=== PATIENT | female | born 1960 | race Caucasian/White ===

== ENCOUNTER 2016-09-12 11:21 | Emergency (ER) | payer BC ==
[~2016-09-12] VITALS: Ht 170.2 cm; Wt 149.0 kg
[~2016-09-12 11:21] MED LIST: AMBIEN10 MG PO; AZITHROMYCIN250 MG PO; BACTRIM,SEPT1 TABLET PO; CLINDAMYCIN HC300 MG PO; DICLOFENAC SODI75 MG PO; EFFEXOR75 MG PO; ENDOCET 7.5-321 EACH PO; GLUCOSAMINE-CH1 EA29 PO; HYDROCHLOROTHIA25 MG PO; KEFLEX500 MG PO; LORAZEPAM0.5 MG PO; LOSARTAN POTAS100 MG PO; MAGNESIUM OXID200 MG PO; METFORMIN HCL500 MG PO; MOTRIN600 MG PO; NORCO 5/3251 TABLET PO; OXYCODONE HCL10 MG PO; PERCOCET 5/31 TABLET PO; PERCOCET 7.51 TABLET PO; PREDNISONE10 MG PO; PRISTIQ50 MG PO; ROCEPHIN2 GM/50 ML IV; SINGULAIR10 MG PO; SPIRIVA RESPIMAT4 GM IH; SPIRIVA1 INHALATI IH; SYMBICORT60 INHALA1 IH; SYMBICORT60 INHALAT IH; TYLENOL ARTHRI650 MG PO; ULTRAM50 MG PO; VENLAFAXINE HCL75 MG PO; VENTOLIN HFA18 GM IH
[2016-09-12] MEDS ORDERED: CLEOCIN300 MG PO (15:20)
[2016-09-12] MEDS ORDERED: NORCO 5/3251 TABLET PO (15:20)
[2016-09-12 15:45] VITALS: BP 103/65
== END 2016-09-12 16:10 | disposition home or self-care (01) ==
LOC: EME 11:21
PROC: 0H97XZZ Drainage of Abdomen Skin, External Approach (ICD-10-PCS; principal; 2016-09-12)
DX: L02.211 Cutaneous abscess of abdominal wall (principal)
CPT/HCPCS: 99281; 99284

== ENCOUNTER 2017-06-24 08:09 | Emergency (ER) | payer BC ==
[~2017-06-24] VITALS: Ht 170.2 cm; Wt 159.0 kg
[~2017-06-24 08:09] MED LIST changes: +ATIVAN1 MG PO; +CLEOCIN300 MG PO; +EFFEXOR XR150 MG PO; -EFFEXOR75 MG PO; -LORAZEPAM0.5 MG PO
[2017-06-24 08:55] VITALS: BP 130/80
[2017-06-27] MEDS ORDERED: DULERA 100 MCG/13 GM IH (14:40)
[2017-06-27] MEDS ORDERED: CELEBREX200 MG PO (14:41)
[2017-06-27] MEDS ORDERED: CRESTOR10 MG PO (14:43)
[2017-06-27] MEDS ORDERED: VITAMIN D2000 UNIT PO (15:28)
== END 2017-06-24 08:56 | disposition home or self-care (01) ==
LOC: EME 08:09
DX: I83.891 Varicose veins of right lower extremity with other complications (principal); W26.8XXA Contact with other sharp object(s), not elsewhere classified, initial encounter; J44.9 Chronic obstructive pulmonary disease, unspecified; I10 Essential (primary) hypertension; Z87.891 Personal history of nicotine dependence
CPT/HCPCS: 99281; 99283

== ENCOUNTER 2017-07-01 21:42 | Inpatient (IN) | payer BC ==
[~2017-07-01] VITALS: Ht 170.2 cm; Wt 162.9 kg
[~2017-07-01 21:42] MED LIST changes: +CELEBREX200 MG PO; +CRESTOR10 MG PO; +DULERA 100 MCG/13 GM IH; +VITAMIN D2000 UNIT PO
[2017-07-02] VITALS (7 sets, daily range): BP systolic 124–180; BP diastolic 60–92
[2017-07-02 05:55] LABS: POINT-OF-CARE METER ID UU14174212
[2017-07-02 07:06] LABS: INTER. NORMALIZED RATIO 1.3; PROTHROMBIN TIME 14.4 SEC (10.2-12.9)
[2017-07-02 07:08] LABS: PTT 45.4 SEC (25-37)
[2017-07-02 07:20] LABS: METH RESISTANT S AUREUS PCR NEGATIVE (NEGATIVE); PROBE CHECK PASS; SPECIMEN PROCESSING CONTROL PASS
[2017-07-02 09:07] LABS: POINT-OF-CARE METER ID UU13113675
[2017-07-02 12:34] LABS: POINT-OF-CARE METER ID UU14162508
[2017-07-02 17:17] LABS: POINT-OF-CARE METER ID UU14162508
[2017-07-03 00:09] LABS: POINT-OF-CARE METER ID UU14162508
[2017-07-03 03:29] VITALS: BP 128/68
[2017-07-03 05:43] LABS: POINT-OF-CARE METER ID UU14162508
[2017-07-03 05:50] LABS: HEMATOCRIT 39.8 % (36.0-46.0); MCH 28.8 PG (29.0-34.0); MCHC 31.7 G/DL (30.0-36.0); MCV 91.1 FL (83-99); PLATELET COUNT 220 K/uL (156-360); RBC DIS.WIDTH-CV 13.5 % (11.8-14.6); RBC DIS.WIDTH-SD 45.7 % (39-53); RED BLOOD COUNT 4.37 M/uL (3.80-5.20); WHITE BLOOD COUNT 15.2 K/uL (4.1-10.2)
[2017-07-03 06:27] LABS: ANION GAP 7 MEQ/L (2-14); CHLORIDE 103 MEQ/L (99-109); GFR ESTIMATE (CALCULATED) > 59 mL/min/; GLUCOSE 86 mg/dL (70-99); POTASSIUM 4.5 MEQ/L (3.7-5.4); SAMPLE HEMOLYSIS CHECK 0; SAMPLE ICTERIC CHECK 0; SAMPLE LIPEMIA CHECK 0; SODIUM 142 MEQ/L (136-147); UREA NITROGEN (BUN) 11 mg/dL (9-23)
[2017-07-03 07:51] VITALS: BP 142/88
[2017-07-03 11:45] VITALS: BP 147/80
[2017-07-03 12:57] LABS: POINT-OF-CARE METER ID UU14314084
== END 2017-07-03 14:16 | disposition home or self-care (01) | DRG 621 ==
LOC: ENRESERV 21:42 → 2SOUTH 07-02 05:24 → ENRESERV 07-02 08:52 → 2SOUTH 07-02 09:18 → 2EAST 07-02 09:41 → 2SOUTH 07-02 09:49 → 2EAST 07-03 14:16
PROVIDERS: Surgery
PROC: 0DB64Z3 Excision of Stomach, Percutaneous Endoscopic Approach, Vertical (ICD-10-PCS; principal; 2017-07-02)
DX: E66.01 Morbid (severe) obesity due to excess calories (principal); Z68.43 Body mass index [BMI] 50.0-59.9, adult; G47.30 Sleep apnea, unspecified; M19.90 Unspecified osteoarthritis, unspecified site; J44.9 Chronic obstructive pulmonary disease, unspecified; Z87.891 Personal history of nicotine dependence; Z83.3 Family history of diabetes mellitus; Z84.89 Family history of other specified conditions
CPT/HCPCS: 80048; 82948; 83735; 84100; 85027; 85610; 85730; 87641; 94640; 94640 76; 94799; C9113; J0131; J0330; J0690; J1170; J1644; J1650; J1815; J2250; J2405; J2550; J2710; J3010; J3480; J7120; S0020

== ENCOUNTER 2018-02-17 10:55 | Emergency (ER) | payer OTHER ==
[~2018-02-17] VITALS: Ht 170.2 cm; Wt 121.8 kg
[2018-02-17] MEDS ORDERED: KEFLEX500 MG PO (13:11)
[2018-02-17] MEDS ORDERED: BACTRIM,SEPT1 TABLET PO (13:11)
[2018-02-17 13:31] VITALS: BP 125/75
== END 2018-02-17 13:33 | disposition home or self-care (01) ==
LOC: EME 10:55
DX: L03.031 Cellulitis of right toe (principal)
CPT/HCPCS: 99281; 99284